=== PATIENT | male | born 1995 | race Caucasian/White ===

== ENCOUNTER 2018-05-11 00:27 | Emergency (ER) | payer BC ==
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
[2018-05-11 01:56] VITALS: BP 118/70
== END 2018-05-11 02:02 | disposition home or self-care (01) ==
PROC: 0HQ1XZZ Repair Face Skin, External Approach (ICD-10-PCS; principal; 2018-05-11)
DX: S01.81XA Laceration without foreign body of other part of head, initial encounter (principal); V18.0XXA Pedal cycle driver injured in noncollision transport accident in nontraffic accident, initial encounter; Y93.55 Activity, bike riding; Y99.8 Other external cause status

== ENCOUNTER 2019-02-09 14:08 | Emergency (ER) | payer BC | END 2019-02-09 15:30 | disposition home or self-care (01) ==